=== PATIENT | female | born 1960 | race Caucasian/White ===

== ENCOUNTER 2019-04-30 08:34 | Emergency (ER) | payer BC ==
[~2019-04-30] VITALS: Ht 160 cm; Wt 76.2 kg
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
[2019-04-30] MEDS ORDERED: IBUPROFEN 600 MG TABLET PO ONE ×2 (09:05→09:30)
--- NOTE | 2019-04-30 09:10 | NUR ---
RADIOLOGY AT BEDSIDE.
[2019-04-30 10:28] VITALS: BP 138/84
== END 2019-04-30 10:30 | disposition home or self-care (01) ==
LOC: ER 08:37
DX: S50.312A Abrasion of left elbow, initial encounter (principal); S09.8XXA Other specified injuries of head, initial encounter; Z88.0 Allergy status to penicillin; Z88.1 Allergy status to other antibiotic agents; Z98.890 Other specified postprocedural states; V03.99XA Pedestrian with other conveyance injured in collision with car, pick-up truck or van, unspecified whether traffic or nontraffic accident, initial encounter; Y93.89 Activity, other specified; Y92.89 Other specified places as the place of occurrence of the external cause; Y99.8 Other external cause status
CPT/HCPCS: 72040-TC; 72100-TC

== ENCOUNTER 2019-05-31 12:20 | Inpatient (IN) | payer BC ==
[~2019-05-31] VITALS: Ht 165.1 cm; Wt 71.7 kg
--- NOTE | 2019-05-31 13:00 | NUR ---
LOWER BACK PAIN AND PAIN TO L CALF. PATIENT A/OX4, BREATHING EVEN AND UNLABORED, NO SOB NOTED. ATTACHED TO THE MONITOR, CHANGED INTO GOWN.
[2019-05-31 13:02] LABS: BASOPHILS % (AUTO) 0.5 % (0.0-2.0); HEMATOCRIT 43 % (33-45); HEMOGLOBIN 14.7 g/dL (11.5-14.8); LYMPHOCYTES # (AUTO) 1.8 /CMM (0.8-4.8); LYMPHOCYTES % (AUTO) 27.7 % (20.0-44.0); MEAN CORPUSCULAR HGB CONC 34 g/dl (31.0-36.0); MEAN CORPUSCULAR VOLUME 92 fL (82-100); MONOCYTES # (AUTO) 0.4 /CMM (0.1-1.30); MONOCYTES % (AUTO) 6.2 % (2.0-12.0); NEUTROPHILS # (AUTO) 4.2 /CMM (1.8-8.9); NEUTROPHILS % (AUTO) 63.6 % (43.0-81.0); PLATELET COUNT (AUTO) 282 /CMM (150-450); RED BLOOD CELL COUNT(AUTO) 4.68 MIL/uL (4.0-5.2); WHITE BLOOD COUNT (AUTO) 6.6 K/uL (4.3-11.0)
[2019-05-31 13:09] LABS: CALCIUM, SERUM 9.1 mg/dL (8.5-10.1); CARBON DIOXIDE 27 mmol/L (21-32); CHLORIDE 105 mmol/L (98-107); CREATININE 0.8 mg/dL (0.6-1.3); GLUCOSE 100 mg/dL (74-106); POTASSIUM 3.8 mmol/L (3.5-5.1); SODIUM SERUM 140 mmol/L (136-145); UREA NITROGEN, BLOOD 16 mg/dL (7-18)
[2019-05-31] MEDS ORDERED: ALBU18HF2 PO (16:14)
[2019-05-31] MEDS ORDERED: CYCL5TAB PO (16:14)
--- NOTE | 2019-05-31 16:16 | NUR ---
CALLED NURSING SUP. FOR MS BED
--- NOTE | 2019-05-31 16:40 | NUR ---
MS 206
--- NOTE | 2019-05-31 17:07 | NUR ---
REPORT GIVEN TO JAMES TREVINO.
[2019-05-31 17:30] VITALS: BP 143/71
[2019-05-31] MEDS ORDERED: ALBUTEROL FS 2.5 MG/3 ML VIAL.NEB NEB PRN (17:30)
[2019-05-31] MEDS ORDERED: TEMAZEPAM 15 MG CAPSULE PO PRN (17:30)
[2019-05-31] MEDS ORDERED: ONDANSETRON HCL/PF 4 MG/2 ML VIAL IVP PRN (17:30)
[2019-05-31] MEDS ORDERED: HYDROCODONE/APAP 10/325MG 1 EA TABLET PO PRN (17:30)
[2019-05-31] MEDS: PANTOPRAZOLE 40 MG TABLET.DR PO SCH (17:30)
[2019-05-31] MEDS ORDERED: MAGNESIUM HYDROXIDE 30 ML UDC PO PRN (17:30)
[2019-05-31] MEDS ORDERED: HYDROCODONE/APAP 5/325MG 1 EACH TABLET PO PRN (17:30)
[2019-05-31] MEDS ORDERED: MAG HYDROX/AL HYDROX/SIMETH 30 ML UDC PO PRN (17:30)
[2019-05-31] MEDS ORDERED: ACETAMINOPHEN 325 MG TABLET PO PRN (17:30)
--- NOTE | 2019-05-31 17:30 | NUR ---
PATIENT TRANSFERRED TO ROOM 206.
--- NOTE | 2019-05-31 17:30 | NUR ---
MS ASSESSMENT CONSULTANT NOTES ADMITTED PATIENT FROM ER REPORT GIVEN BY AARON TREVINO, ALERT ORIENTED X 4. NO ACUTE DISTRESS NOTED. BREATHING UNLABORED. NO SOB NOTED. IV ACCESS PATENT AND INTACT, NO REDNESS OR SWELLING NOTED. NEEDS ATTENDED AND ANTICIPATED. SAFETY MEASURES IN PLACE. CALL LIGHT WITHIN REACH. WILL CONTINUE TO MONITOR ACCORDINGLY.
[2019-05-31] MEDS ORDERED: ENOXAPARIN SODIUM 40 MG/0.4 ML DISP.SYRIN SQ SCH (18:00)
--- NOTE | 2019-05-31 19:00 | NUR ---
RN MS OPENING NOTES RECEIVED PATIENT IN BED AWAKE ALERT AND ORIENTED X 4, RESPIRATIONS EVEN AND UNLABORED AT THIS TIME , PATIENT STATES AT TIMES HAS "SHALLOWED BREATHING". HOWEVER AT THIS TIME REMAINS COMFORTABLE. IV SITE TO RIGHT AC #20G INTACT AND PATENT, NO REDNESS, NO INFILTRATION, FLUIDS OFFERED, ORIENTED TO STAFF AND CALL LIGHT AND KEPT WITHIN REACH, ALL NEEDS ATTENDED AT THIS TIME.
--- NOTE | 2019-05-31 19:00 | NUR ---
MS RN NOTES PATIENT IN BED ALERT ORIENTED X 4. NO ACUTE DISTRESS NOTED. BREATHING UNLABORED. NO SOB NOTED. IV ACCESS PATENT AND INTACT, NO REDNESS OR SWELLING NOTED. PATIENT REFUSED LOVENOX AND PROTONIX DESPITE OF EXPLANATION OF RISKS AND BENEFITS. NEEDS ATTENDED AND ANTICIPATED. KEPT CLEAN DRY AND COMFORTABLE. SAFETY MEASURES IN PLACE. CALL LIGHT WITHIN REACH. WILL ENDORSE TO NIGHT NURSE FOR CONTINUITY OF CARE.
[2019-05-31 20:00] VITALS: BP 128/68
--- NOTE | 2019-05-31 20:14 | NUR ---
rn ms notes patient states pain 3/10 right side back lung area. requesting for pain medication norco , norco 5-325 offered. patient agreed to take, prn given will continue to monitor for effectiveness.
[2019-05-31 20:20] VITALS: BP 128/68
--- NOTE | 2019-06-01 06:51 | NUR ---
RN MS CLOSING NOTES PATIENT IN BED AWAKE ALERT AND ORIENTED X 4, RESPIRATIONS EVEN AND UNLABORED WITH EQUAL RISE AND FALL OF CHEST AT THIS TIME , CURRENTLY ON 02 2 L VIA NC FOR COMFORT EFFECTIVE, NORCO EFFECTIVE, DENIES ANY PAIN OR DISCOMFORT AT THIS TIME, PATIENT SLEPT WELL THROUGHOUT NIGHT, IV SITE TO RIGHT AC #20G INTACT AND PATENT, NO REDNESS, NO INFILTRATION, FLUIDS OFFERED, CALL LIGHT KEPT WITHIN REACH, ALL NEEDS ATTENDED AT THIS TIME WILL CONTINUE TO MONITOR AND ENDORSE TO NEXT SHIFT.
--- NOTE | 2019-06-01 07:15 | NUR ---
MS RN NOTES PATIENT IN BED ALERT ORIENTED X 4. NO ACUTE DISTRESS NOTED. BREATHING UNLABORED. NO SOB NOTED. IV ACCESS PATENT AND INTACT, NO REDNESS OR SWELLING NOTED. SAFETY MEASURES IN PLACE. CALL LIGHT WITHIN REACH. WILL CONTINUE TO MONITOR ACCORDINGLY.
[2019-06-01 07:19] LABS: BASOPHILS % (AUTO) 0.7 % (0.0-2.0); EOSINOPHILS % (AUTO) 2.6 % (0.0-6.0); HEMATOCRIT 42 % (33-45); HEMOGLOBIN 14.3 g/dL (11.5-14.8); LYMPHOCYTES # (AUTO) 1.8 /CMM (0.8-4.8); LYMPHOCYTES % (AUTO) 31.2 % (20.0-44.0); MEAN CORPUSCULAR HGB CONC 34 g/dl (31.0-36.0); MEAN CORPUSCULAR VOLUME 92 fL (82-100); MONOCYTES # (AUTO) 0.4 /CMM (0.1-1.30); MONOCYTES % (AUTO) 7.8 % (2.0-12.0); NEUTROPHILS # (AUTO) 3.2 /CMM (1.8-8.9); NEUTROPHILS % (AUTO) 57.7 % (43.0-81.0); PLATELET COUNT (AUTO) 267 /CMM (150-450); RED BLOOD CELL COUNT(AUTO) 4.56 MIL/uL (4.0-5.2); WHITE BLOOD COUNT (AUTO) 5.6 K/uL (4.3-11.0)
[2019-06-01 07:29] LABS: THYROID STIMULATING HORMONE 5.01 uIU/mL (0.358-3.74)
[2019-06-01] MEDS: PANTOPRAZOLE 40 MG TABLET.DR PO SCH (07:30)
[2019-06-01 07:35] LABS: CALCIUM, SERUM 8.8 mg/dL (8.5-10.1); CREATININE 0.8 mg/dL (0.6-1.3); MAGNESIUM 1.8 mg/dL (1.8-2.4); PHOSPHORUS 5.2 mg/dL (2.5-4.9); POTASSIUM 3.9 mmol/L (3.5-5.1)
[2019-06-01 08:00] VITALS: BP 108/78
--- NOTE | 2019-06-01 15:45 | NUR ---
MS RN NOTES SEEN AND EVALUATED BY LAYTON BECKER WITH NEW ORDERS MADE. NOTED AND CARRIED OUT.
[2019-06-01 16:00] VITALS: BP 134/87
--- NOTE | 2019-06-01 19:10 | NUR ---
MS RN NOTES PATIENT DISCHARGE HOME WITH STABLE VITAL SIGNS, NO ACUTE DISTRESS NOTED. BREATHING UNLABORED. NO SOB NOTED. DISCHARGE INSTRUCTIONS GIVEN TO THE PATIENT INCLUDING FOLLOW UP WITH PRIMARY DOCTOR, CHEST XRAY FOLLOW UP AND NEW PRESCRIPTION, VERBALIZED UNDERSTANDING. IMAGING CD GIVEN TO THE PATIENT AND NEW PRESCRIPTION. ALL BELONGINGS ACCOUNTED FOR. IV ACCESS REMOVED, NO BLEEDING, NO REDNESS, NO SWELLING NOTED. ASSISTED TO THE LOBBY, PICKED UP VIA PRIVATE CAR IN STABLE CONDITION.
== END 2019-06-01 19:10 | disposition home or self-care (01) | DRG 200 ==
LOC: ER 12:24 → MEDSG2 16:53
PROVIDERS: ADMIT Nurse Practitioner Acute Care; ATTEND Nurse Practitioner Acute Care
DX: J95.811 Postprocedural pneumothorax (principal); J98.11 Atelectasis; F41.9 Anxiety disorder, unspecified; J45.909 Unspecified asthma, uncomplicated; V89.0XXS Person injured in unspecified motor-vehicle accident, nontraffic, sequela; Y84.8 Other medical procedures as the cause of abnormal reaction of the patient, or of later complication, without mention of misadventure at the time of the procedure; Y82.8 Other medical devices associated with adverse incidents; Y92.89 Other specified places as the place of occurrence of the external cause
CPT/HCPCS: 36415; 71045-TC; 71250-TC; 80048-TC; 80061-TC; 83735-TC; 84100-TC; 84443-TC; 84484-TC; 85025-TC; 85378-TC; 87081-TC; G0378